=== PATIENT | female | born 1975 | race Caucasian/White ===

== ENCOUNTER → 2018-08-05 10:04 | Outpatient (CLI) | payer OTHER, SELFPAY ==
--- NOTE | 2018-08-05 10:10 | MRI_ITS ---
STUDY: MRA OF THE PELVIS WITH OR WITHOUT CONTRAST REASON FOR EXAM: Female, 43 years old. Left leg swelling, pelvic and left leg pain. Varicose veins with inflammation. Suspect May-Thurner syndrome. TECHNIQUE: Source images were obtained, MIPs were performed. 10 ml of Gadavist was administered for the contrast portion of this study. TECHNICAL QUALITY: Good COMPARISON: None. Descriptors of Narrowing: None (0%) Mild (< 50%) Moderate (50-70%) Severe (70-90%) Subtotal/Total Occlusion (90-100%) Non-Evaluable (technically non-diagnostic) FINDINGS: Uterus is 12.65 x 6.35 x 7.25 cm. There are nabothian cysts in the uterine cervix, one of the largest measuring 15 x 10.5 x 14 mm. The mildly lobulated endometrial thickness is 17 mm. 2.15 x 2.0 x 2.15 cm lesion in the anterior upper myometrium is consistent with a fibroid. The patient is positioned with a 16 degree levoscoliosis centered at L3. Normal abdominal aorta. Normal inferior vena cava. Normal retroperitoneum. RIGHT Right common iliac artery: No demonstrated narrowing. Right external iliac artery: No demonstrated narrowing. Right internal iliac artery: No demonstrated narrowing. Right common iliac vein: No demonstrated narrowing. Right external iliac vein: No demonstrated narrowing. Right internal iliac vein: No demonstrated narrowing. LEFT Left common iliac artery: No demonstrated narrowing. Left external iliac artery: No demonstrated narrowing. Left internal iliac artery: No demonstrated narrowing. Left common iliac vein: The overlying right common iliac artery is in close apposition No to the left common iliac vein. The vein diameter just proximal to this point is 18.5 x 10 mm in diameter, compared to the 11 x 7.5 mm diameter right common iliac vein. Left external iliac vein: No demonstrated narrowing. Left internal iliac vein: No demonstrated narrowing. MRI/Pelvis W/WO Contrast IMPRESSION: 1. As expected, the right common iliac artery is in close apposition to the left common iliac vein. The left common iliac vein is larger in caliber than the right, but there is no clear narrowing to suggest flow-limiting venous stenosis, e.g., May-Thurner syndrome. 2. Incidental note of mildly enlarged uterus with 2.15 cm upper anterior myometrial fibroid. The endometrium also is thickened and mildly lobulated. There are a few nabothian cysts in the cervix, the larger measuring 15 mm diameter. Electronically Signed: Asher Mathis MD at 18:05 EDT , Service support ,
== END ==
PROVIDERS: Family Provider Family Medicine; PCP Family Medicine; Visit Provider Surgery
DX: N85.2 Hypertrophy of uterus (principal); N88.8 Other specified noninflammatory disorders of cervix uteri; R93.8 Abnormal findings on diagnostic imaging of other specified body structures; R10.2 Pelvic and perineal pain; I83.12 Varicose veins of left lower extremity with inflammation; M79.89 Other specified soft tissue disorders
CPT/HCPCS: 72197; A9585

== ENCOUNTER 2018-08-13 03:19 | Emergency (ER) | payer OTHER, SELFPAY ==
[2018-08-13 03:20] VITALS: BP 161/106; PULSE 76; RESP 18; TEMP 36.4; O2SAT 100; BMI 38.7
--- NOTE | 2018-08-13 03:49 | CT_ITS ---
STUDY: CT ABDOMEN AND PELVIS WITH CONTRAST REASON FOR EXAM: Female, 43 years old. Right lower quadrant pain RADIATION DOSAGE (If Supplied By Facility): CTDIvol = ( 19.10 ) mGy, DLP = ( 2111.23 ) mGycm TECHNIQUE: Transaxial images were obtained from the dome of the diaphragm to the symphysis pubis without oral contrast. 100ml ml of Isovue 300 contrast was administered. Sagittal and coronal images were reconstructed. Individualized dose optimization techniques were used for this CT. COMPARISON: None. FINDINGS: The visualized lung bases are unremarkable. The visualized portions of the heart are within normal limits. There is decreased attenuation of the liver consistent with steatosis. There are surgical clips in the gallbladder fossa consistent with a prior cholecystectomy. Normal spleen. Normal pancreas. Normal bilateral adrenal glands. 3 mm stone in the proximal right ureter distal to the ureteropelvic junction. Moderate acute obstructive uropathy on the right, with renal swelling and delayed nephrogram. Nonobstructing bilateral renal stones measuring up to 2 mm. Normal visualized stomach. Inspissated material in several nondilated small bowel loops could be related to chronic ileus. Normal colon. The appendix is visualized and appears normal. Normal abdominal aorta. Normal inferior vena cava. Normal retroperitoneum. Normal urinary bladder. 3.4 cm right uterine mass is likely a fibroid. Normal abdominal wall. Normal osseous structures. CT/Abdomen/Pelvis W IV Cont ONLY IMPRESSION: 3 mm stone in the proximal right ureter distal to the ureteropelvic junction. Moderate acute obstructive uropathy on the right. Normal appendix. Uterine fibroid. Probable chronic small bowel ileus. Electronically Signed: Frank Mendez MD at 4:45 EDT Tel , Service support ,
--- NOTE | 2018-08-13 03:53 | ED.DCSUM_ITS ---
History of Present Illness Chief Complaint: Abd Pain Informant: Patient Onset: Hours - 2 Context: Sudden Onset Timing: Continuous Quality: ache/pain Location: RLQ Current Severity: Severe Maximum Severity: Severe Worsened by: nothing Relieved by: nothing Associated Symptoms: n/v. BRBPR mixed w/ stool x 2d. Narrative: Sudden onset of significant right lower quadrant pain that she has never had before. She has history of kidney stones and states this feels different. Had some varicose veins in her left lower extremity recently and in part of her workup had an MRI of her pelvis to rule out May Harkins syndrome, which MRI did not show any evidence of. Incidentally, ovarian cysts were found. This pain is not radiating into her back. No urinary symptoms. No vaginal symptoms. Prior abdominal surgeries include cholecystectomy and several C-sections. She saw her doctor for blood in her stool for the past couple days and had a stool culture ordered, however she has not turned in a specimen yet. When she was having hematochezia, she was having no abdominal discomfort otherwise. Prior similar symptoms: Yes Past Medical History - Allergies and Home Meds Allergies/Adverse Reactions: Allergies azithromycin [From Zithromax] Adverse Reaction (Verified 08/13/18 03:22) Swelling Primary Care Physician: Grady Song MD [Primary Care Provider] - Surgical History: cholecystectomy, - - c-sections Lives: Spouse/ Significant Other Smoking Status: Never smoker Drugs: None Review of Systems General: Denies: Chills, Fever Cardiovascular: Denies: Chest pain, Palpitations Respiratory: Denies: Dyspnea, Cough Gastrointestinal: Reports: Abdominal pain, Nausea, Vomiting, Hematochezia. D enies: Diarrhea, Constipation, Melena Genitourinary: Denies: Dysuria, Hematuria, Frequency Musculoskeletal: Denies: Neck pain, Back pain, Swelling, Extremity Pain Skin: Denies: Rash, Wounds Neurological: Denies: Headache, Weakness, Parasthesia, Numbness Endocrine: Denies: Polyuria, Polydipsia Physical Exam Vital Signs/Narrative: Vital Signs Temp Pulse Resp Pulse Ox 08/13/18 03:20 97.6 F L 76 18 100 Inital Vital Signs reviewed: Yes General: Well nourished, Well developed, - - Uncomfortable. Pacing. Mild painful distress. Head: Normocephalic, Atraumatic Eyes: Perrl, EOMI ENT: Moist mucous membranes, No rhinorrhea Neck: Supple, Nontender Cardiovascular: Regular rate, Regular rhythm, No murmurs Respiratory: No distress, CTA bilaterally, Chest nontender Abdomen: Soft, Nondistended, Normal bowel sounds, Tender - Right lower quadrant at McBurney's point. Nontender distally and pelvis.. Negative for: Guarding, Rebound tenderness, Rovsig's sign, Olivares's sign Back: Nontender, Normal Inspection. Negative for: CVA tenderness Extremities: Nontender, No edema Skin: Normal color, No rash Neurological: Alert, Oriented x3, Cranial nerves II-XII grossly intact, Normal Strength, Normal Sensation, Normal Gait Psychological: Normal affect Diagnostic/Tx/Re-eval Impressions Abdomen/Pelvis CT 08/13/18 03:49 IMPRESSION: 3 mm stone in the proximal right ureter distal to the ureteropelvic junction. Moderate acute obstructive uropathy on the right. Normal appendix. Uterine fibroid. Probable chronic small bowel ileus. Electronically Signed: Frank Mendez MD at 4:45 EDT Tel , Service support , 08/13/18 03:49 Abdomen/Pelvis W IV Cont ONLY [CT] Stat Laboratory Results 08/13/18 08/13/18 08/13/18 03:30 03:30 04:05 WBC 6.0 RBC 4.42 Hgb 9.5 L Hct 31.2 L MCV 70.6 L MCH 21.5 L MCHC 30.4 L RDW 17.1 H RDW Differential 43.3 Plt Count 331 MPV 9.0 Immature Gran % (Auto) 0.200 Neut % (Auto) 55.0 Lymph % (Auto) 33.2 Posey % (Auto) 7.7 Eos % (Auto) 2.9 Baso % (Auto) 1.0 Absolute Neuts (auto) 3.3 Absolute Lymphs (auto) 1.98 Total Counted Not Reportable Differential Comment SCANNED Hypochromasia 3+ Anisocytosis 2+ Microcytosis 2+ Ovalocytes 1+ Sodium 141 Potassium 3.9 Chloride 108 H Carbon Dioxide 26.0 Anion Gap 7 BUN 8 Creatinine 0.90 Estim Creat Clear Calc 76.23 Est GFR (MDRD) Af Amer 88 Est GFR (MDRD) Non-Af 73 BUN/Creatinine Ratio 8.9 L Glucose 105 Calcium 10.3 H Urine Color Urine Clarity Urine pH Ur Specific [place] Urine Protein Urine Glucose (UA) Urine Ketones Urine Occult Blood Urine Nitrite Urine Bilirubin Urine Urobilinogen Ur Leukocyte Esterase Urine RBC Urine WBC Ur Squamous Epith Cells Calcium Oxalate Crystal Urine Bacteria Urine Mucus Urine Test Negative 08/13/18 04:05 WBC RBC Hgb Hct MCV MCH MCHC RDW RDW Differential Plt Count MPV Immature Gran % (Auto) Neut % (Auto) Lymph % (Auto) Posey % (Auto) Eos % (Auto) Baso % (Auto) Absolute Neuts (auto) Absolute Lymphs (auto) Total Counted Differential Comment Hypochromasia Anisocytosis Microcytosis Ovalocytes Sodium Potassium Chloride Carbon Dioxide Anion Gap BUN Creatinine Estim Creat Clear Calc Est GFR (MDRD) Af Amer Est GFR (MDRD) Non-Af BUN/Creatinine Ratio Glucose Calcium Urine Color Yellow Urine Clarity Sl. Cloudy Urine pH 6.0 Ur Specific [place] 1.020 Urine Protein 30 H Urine Glucose (UA) Normal Urine Ketones Negative Urine Occult Blood 250 H Urine Nitrite Negative Urine Bilirubin Negative Urine Urobilinogen Normal Ur Leukocyte Esterase 25 H Urine RBC 10-25 SEEN Urine WBC 0-5 SEEN Ur Squamous Epith Cells 0 SEEN Calcium Oxalate Crystal 1+ Urine Bacteria RARE Urine Mucus 0 SEEN Urine Test - Medical Decision Making After Toradol, morphine, Zofran, patient is feeling much, much better. Labs show a nonspecific mild leukocytosis, and microscopic hematuria without signs of infection. Renal function is okay. CT shows a 3 mm right distal ureteral stone, which is likely causing her symptoms. Expectant management is indicated. She did have surgery for a kidney stone on the left side in the past, but it was nonobstructing and absent at the time of surgery. Advised to follow-up with her urologist only if she cannot pass the stone after a week or 2. ED Disposition - Plan for ED Patient: Disposition: Home or Assisted Living Chief Complaint: Abd Pain Diagnosis: Ureteral colic, Urolithiasis Instructions: ED Stone Renal W Colic, ED Strainer Urine Prescriptions: Oxycodone HCl/Acetaminophen [Percocet 5/325] 1 tab PO Q6H PRN PRN 4 Days #16 tab PRN Reason: Pain Ondansetron [Zofran Odt] 8 mg PO Q8H PRN PRN #12 PRN Reason: Nausea Referrals: Grady Song MD [Primary Care Provider] - Daniele Gonzalez MD [STAFF PHYSICIAN] - 10-14 Days if not better
[2018-08-13] MEDS: Morphine 4 MG/ML Syringe IV (03:57)
[2018-08-13] MEDS: Ketorolac 30 MG/ML Syringe IV (03:58)
[2018-08-13] MEDS: 0.9% Normal Saline 1,000 ML 250 ML IV (03:58)
[2018-08-13] MEDS: Ondansetron 4 MG/2 ML Vial IV (03:58)
[2018-08-13 04:06] LABS: Anion Gap 7 (5-15); BUN 8 mg/dL (7-18); BUN/Creat Ratio 8.9 RATIO (10-20); Calcium,Total 10.3 mg/dL (8.5-10.1); Chloride 108 mmol/L (98-107); EST Glomerular Filtration Rate 73 mL/min (>60); Est Glom Filt Rate - Afr Amer 88 mL/min (>60); Estimated Creatinine Clearance 76.23 ml/min; Glucose 105 mg/dL (74-106); Potassium 3.9 mmol/L (3.5-5.1); Sodium Level 141 mmol/L (136-145)
[2018-08-13 04:10] LABS: Absolute Lymphocyte Count 1.98 X10^3/ul (0.83-4.51); Absolute Neutrophil Count 3.3 X10^3/uL (2.0-7.7); Basophil# 0.06 X10^3/uL; Eosinophil# 0.17 X10^3/uL; Eosinophils% 2.9 % (0-5); Hematocrit 31.2 % (37-47); Hemoglobin 9.5 g/dl (12.0-15.0); Lymphocyte # 1.98 X10^3/ul (4.0); Lymphocyte % 33.2 % (19-41); Mean Corp Hgb Conc 30.4 g/gl (32-36); Mean Corpuscular Hgb 21.5 pg (27.0-32.0); Mean Corpuscular Volume 70.6 fL (81-99); Monocyte# 0.46 X10^3/uL; Monocyte% 7.7 % (0-10); Neutrophil # 3.28 X10^3/uL (2.7-7.7); Platelet Count 331 K/mm3 (150-450); RBC Distribution Width CV 17.1 % (11.6-14.6); RBC Distribution Width SD 43.3 fl (35.1-43.9); Red Blood Count 4.42 M/mm3 (4.2-5.4)
[2018-08-13 04:11] LABS: Differential Indicated SCAN CRITERIA MET; POSITIVE COUNT NO; POSITIVE DIFFERENTIAL NO; POSITIVE MORPHOLOGY YES
[2018-08-13 04:14] LABS: Mucous, Urine 0 SEEN /hpf (<or=2+); Squamous Epithelial Cells - UA 0 SEEN /hpf (5-10)
[2018-08-13 04:18] LABS: Color, Urine Yellow (Yellow); Glucose, Dipstick Normal (Normal); Ketone-Dipstick Negative (Negative); Leukocyte Esterase-Dipstick 25 /ul (Negative); Nitrite-Dipstick Negative (Negative); Occult Blood-Urine 250 /ul (Negative); Protein-Dipstick 30 mg/dl (Negative); Urine Bilirubin Dipstick Negative (Negative); Urine Clarity Sl. Cloudy (Clear); Urine Urobilinogen Normal (Normal)
[2018-08-13 04:21] LABS: Internal QC Validated? YES +Cl - CLEAR BKGD; Pregnancy, Urine Negative Negative
[2018-08-13 04:26] LABS: Red Blood Cells-Urine 10-25 SEEN /hpf (0-5)
[2018-08-13 04:27] LABS: Bacteria RARE /hpf (None Seen); White Blood Cells 0-5 SEEN /hpf (0-5)
[2018-08-13 04:31] LABS: Anisocytosis 2+; Differential Comment SCANNED; Hypochromasia 3+; Microcytosis 2+; Ovalocyte 1+
[2018-08-13 04:31] LABS: Calcium Oxalate Crystals Ur 1+ /hpf (<or=2+)
[2018-08-13 05:09] VITALS: BP 115/48; PULSE 80; RESP 16; O2SAT 98
== END 2018-08-13 05:18 | disposition home or self-care (01) ==
PROVIDERS: Emergency Provider Emergency Medicine; Family Provider Family Medicine; PCP Family Medicine
DX: N20.9 Urinary calculus, unspecified (principal); Z87.442 Personal history of urinary calculi
CPT/HCPCS: 74177; 80048; 81001; 81025; 85025; 96361; 96374; 96375; 99285; J7030; Q9967; A4216; J2405

== ENCOUNTER 2022-07-05 08:35 | Day surgery (SDC) | payer OTHER, SELFPAY ==
[2022-07-03 14:17] LABS: Hemoglobin 10.4 g/dL (12.0-15.0); Mean Corp Hgb Conc 30.6 g/dL (32-36); Mean Corpuscular Volume 78.5 fL (81-99); Mean Platelet Vol. 9.4 fl (6.2-12.0); POSITIVE MORPHOLOGY YES; Platelet Count 337 K/mm3 (150-450); RBC Distribution Width CV 20.6 % (11.6-14.6); Red Blood Count 4.33 M/mm3 (4.2-5.4); White Blood Count 5.7 K/mm3 (4.4-11.0)
[2022-07-03 14:21] LABS: Scan Indicated on CBC? Y/N YES- FLAGS NOTED
[2022-07-05] VITALS (7 sets, daily range): BP systolic 127–135; BP diastolic 72–96; PULSE 67–87; RESP 16; TEMP 36.2–36.6; O2SAT 97–100; BMI 41.3
--- NOTE | 2022-07-05 | EMB_PTH ---
PATIENT: SAMEER PRADO LOC: [facility] [place] U#:[id number] AGE/SX: 47/F ROOM: RE07/05/[address]: Dr. Verena Jonhson DO : 1975 BED: DIS: 07/05/2022 SPEC #: [id number] RECD: 07/05/22 13:25 STATUS: GIANCARLO TONIO #: [id number] JESUS: 07/05/22 00:[address]: Verena Johnson DEPT: SURGICAL PATHOLOGY RECD BY: Jean Pierre Loja ENTERED: 07/05/22 13:25 SP TYPE: ENDOM BX/C JUAN F DR: Dr. Kelly Barreto MD Tissues: Endometrium, NOS Procedures: Surgery Specimen Level IV HEADER OPERATION: Hysteroscopy, D & C PRE-OP DIAGNOSIS: DUB TISSUE SUBMITTED: Endometrial curettings MICROSCOPIC DIAGNOSIS Endometrium, curettings: Polypoid fragments of simple hyperplasia without atypia. Rare fragments of benign squamous mucosa and endocervical mucosa. AM:radha 07/06/2022 COMMENT Case has been reviewed in consultation with Dr. Monahan who concurs with the above diagnosis. IDC:GAIL MICROSCOPIC DESCRIPTION Slides are reviewed. GROSS DESCRIPTION Received in fixative is one container labeled with the patient's name and designated endometrial curettings. The specimen consists of multiple fragments of hemorrhagic soft tissue mixed with polypoid tissue that in aggregate measure 5 x 3 x 1.5 cm. The entire specimen is submitted in eight cassettes. / SJ:radha 07/05/2022 TC:5 CPT: 45676
[2022-07-05 08:59] LABS: Internal QC Validated? YES +Cl - CLEAR BKGD; Pregnancy, Urine Negative Negative
[2022-07-05] MEDS: Lactated Ringers 1,000 ML 15 ML IV (09:17)
--- NOTE | 2022-07-05 10:45 | DCINST_ITS ---
Discharge Instructions Diet Discharge Diet: No restrictions Activity Discharge Activity: May Drive (Once you are more than 24 hours out from surgery) and May Shower (Once you are more than 24 hours out from surgery) May resume sexual activity in: 1 week (No tampons, intercourse, hot tubs, baths for pools for 1 week ) Weight Bearing Status: Weight bearing as tolerated Lifting Restrictions: None Dressing / Incision Call your doctor if you observe: Fever of 101 or Higher, Coldness, Increased Pain, Numbness or Tingling, Change in Color, Inability to urinate, Inability to have a bowel movement, Using more than 1 pad per hour, Shortness of breath, Dizziness, Fainting spells, Swelling in the ankles, Chest pain, Increased palpitations (irregular heartbeat), Calf discomfort and Uncontrolled pain Follow Up Care Please Follow Up With: Verena Johnson DO When: 1-2 weeks Test Results: Test results from this visit will be discussed in further detail at your follow- up appointment, if applicable. Discharge Plan Admission Primary Reason for Your Visit: surgery Attending Provider: Verena Johnson Primary Care Provider: Kelly Barreto Instructions Patient Instructions: Dilation and Curettage Discharge Orders/Prescriptions Prescriptions: New ibuprofen 600 mg tablet 600 mg PO Q6H PRN (Reason: pain) Qty: 30 0RF Continued levothyroxine [Synthroid] 200 mcg tablet 200 mcg PO DAILY Label Comments: TAKE 1 TABLET BY MOUTH EVERY DAY ferrous sulfate 325 mg (65 mg iron) tablet 325 mg PO DAILY Label Comments: TAKE 1 TABLET BY MOUTH TWICE A DAY WITH MEALS Referrals / Follow Up: Kelly Barreto MD [Primary Care Provider] - Disposition Disposition (needs filled in before D/C Order can be placed): Home, Self Care
--- NOTE | 2022-07-05 10:46 | PCM.OPRPT ---
Problems Associated Problem List Diagnoses (1) DUB (dysfunctional uterine bleeding): Report of Operation Date of Procedure: 07/05/22 Pre-Operative Diagnosis: DUB, endometrial polyp noted on pelvic US Post-Operative Diagnosis: DUB Surgery/Procedure Performed:: Hysteroscopy, D&C Description of Surgical Findings:: Uterus sounded to 14 cm. Enlarged uterus and no polyps or fibroids noted. Thickened endometrium. Surgeon: Verena Johnson back tender cylinder: None Type of Anesthesia: MAC Special Medications: None Specimen's removed: Endometrial curettings Drains: None Estimated Blood Loss (mL): < 50 Fluids Replaced: 500 cc deficit Description of Procedure: Patient was taken to the operating room where MAC anesthesia was induced and found to be adequate. She was prepped and draped in the dorsal lithotomy position using yellowfin stirrups. A weighted speculum was placed in the vagina to expose the cervix. The anterior lip of the cervix was grasped with a single-tooth tenaculum. The cervix was already dilated with dark blood coming from the cervical os. The uterus sounded to 14 cm. The Symphion hysteroscope was advanced into the uterus and the uterus was distended with normal saline. Significant amounts of fluid was noted to be coming out of the cervix as it was dilated. An Allis clamp was placed on the posterior lip of the cervix to reduce the cervical dilation. Bilateral tubal ostia were visualized. The endometrium was thickened. No polyps or fibroids were noted within the uterine cavity or in the cervical canal. The Symphion device was removed. A sharp curettage was performed for large amounts of tissue. The endometrial curettings were sent to pathology for review. Bleeding was hemostatic. All instruments were removed from the vagina. Vaginal sweep was performed. Instrument counts and sponge counts were correct. Patient was taken to recovery room in stable condition. Grafts/Implants Used: None Procedure Start Time: 11:07 Procedure Stop Time: 11:26 Complications None Admit VTE Documentation VTE Present on Admission: No VTE Mechan Device Prophylaxis: SCD's
[2022-07-05] MEDS: Lidocaine 1% (20 ml mdv) 20 ML Vial (11:28)
== END 2022-07-05 12:41 | disposition home or self-care (01) ==
LOC: SDC 08:39 → AC 08:40
PROVIDERS: PCP Internal Medicine; Referring Provider Obstetrics & Gynecology; Visit Provider Obstetrics & Gynecology
PROC: 0UB98ZZ Excision of Uterus, Via Natural or Artificial Opening Endoscopic (ICD-10-PCS; CPT 58558; principal; 2022-07-05 10:05)
DX: N85.01 Benign endometrial hyperplasia (principal); N93.8 Other specified abnormal uterine and vaginal bleeding; E61.1 Iron deficiency; E07.9 Disorder of thyroid, unspecified; Z79.899 Other long term (current) drug therapy
CPT/HCPCS: 58558; 00952; 36415; 81025; 85027; 86850; 86900; 86901; 88305; J7120; J2405